=== PATIENT | male | born 1985 | race Caucasian/White ===

== ENCOUNTER 2017-10-22 04:44 | Emergency (ER) | payer OTHER, SELFPAY | END 2017-10-22 06:42 | disposition home or self-care (01) | LOC: ERS 04:44 | DX: L02.214 Cutaneous abscess of groin (principal); L03.314 Cellulitis of groin; E11.9 Type 2 diabetes mellitus without complications | CPT/HCPCS: 99283 ==

== ENCOUNTER 2017-10-22 19:14 | Emergency (ER) | payer SELFPAY ==
[2017-10-22] MEDS ORDERED: Lidocaine 1% w/Epinephrine 1:100K 20 ML VIAL ONE (19:31)
[2017-10-22] MEDS ORDERED: Adacel (T-DAP) 0.5 ML VIAL ONE (20:40)
== END 2017-10-22 21:00 | disposition home or self-care (01) ==
LOC: ERS 19:14
DX: L02.415 Cutaneous abscess of right lower limb (principal); E11.9 Type 2 diabetes mellitus without complications; Z79.899 Other long term (current) drug therapy
CPT/HCPCS: 10060; 87070; 87205; 90471; 90715; J2001

== ENCOUNTER 2023-04-22 07:55 | Emergency (ER) | payer SELFPAY ==
[2023-04-22] MEDS ORDERED: Ketorolac Tromethamine 30 MG/ML VIAL ONE (08:40)
== END 2023-04-22 09:22 | disposition home or self-care (01) ==
LOC: ERS 07:55
DX: M25.531 Pain in right wrist (principal); E11.9 Type 2 diabetes mellitus without complications
CPT/HCPCS: 96372; J1885

== ENCOUNTER 2024-09-18 05:07 | Emergency (ER) | payer SELFPAY ==
[2024-09-18] MEDS ORDERED: Fluorescein Opthalmic Strip ONE (05:30)
[2024-09-18] MEDS ORDERED: Proparacaine 0.5% Opth 15 ML BOT ONE (05:34)
[2024-09-18] MEDS ORDERED: Ibuprofen 200 MG TAB ONE (06:19)
[2024-09-18 06:33] LABS: #Basophils 0.05 10x3/uL (0.0-0.2); %Basophils 0.5 % (0.0-1.0); %Eosinophils 2.4 % (0.0-10.0); %Monocytes 6.4 % (0.0-10.0); %Neutrophils 71.3 % (42.0-75.0); Hematocrit 43.4 % (42.0-52.0); Hemoglobin 15.3 g/dL (14.0-18.0); Mean Corpuscular HGB CONC 35.3 g/dL (32.0-36.0); Mean Corpuscular Hemoglobin 28.4 pg (27.0-31.0); Mean Corpuscular Volume 80.7 fL (78.0-98.0); Mean Platelet Volume 9.9 fL (7.4-10.4); Platelet Count 269 10x3/uL (130-400); RBC Distribution Width 13.4 % (11.5-14.5); Red Blood Cell (RBC) Count 5.38 mill/uL (4.70-6.10)
[2024-09-18 06:53] LABS: ALT (SGPT) 50 U/L (Less than 45); Albumin 3.8 g/dL (3.1-4.5); Alkaline Phosphatase 105 U/L (40-110); Anion Gap 16 mmol/L (10-20); BUN (Urea Nitrogen) 20 mg/dL (8.9-20.6); Bilirubin, Total 0.3 mg/dL (0.3-1.2); Calc. Creatinine Clearance 0 mL/min (70-130); Calcium 9.5 mg/dL (7.8-10.44); Carbon Dioxide 21 mmol/L (22-29); Chloride 101 mmol/L (98-107); Estimated GFR 85; Globulin 5.2 g/dL (2.4-3.5); Glucose 335 mg/dL (70-105); Potassium 4.4 mmol/L (3.5-5.1); Sodium 134 mmol/L (136-145)
[2024-09-18 06:54] LABS: Acetaminophen 11 mcg/mL (Less than 10); Alcohol Less than 10.0 mg/dL (Less than 10)
[2024-09-18 07:37] LABS: AST (SGOT) 46 U/L (11-34); Salicylate Less than 8.0 mg/dL (Less than 8.0)
[2024-09-18 08:37] LABS: Acetaminophen Less than 10 mcg/mL (Less than 10)
[2024-09-18 12:35] LABS: PTT 37.6 sec (22.9-36.1)
[2024-09-18 13:19] LABS: ALT (SGPT) 50 U/L (Less than 45); AST (SGOT) 39 U/L (11-34); Acetaminophen Less than 10 mcg/mL (Less than 10); Albumin 3.7 g/dL (3.1-4.5); Alkaline Phosphatase 103 U/L (40-110); Anion Gap 13 mmol/L (10-20); BUN (Urea Nitrogen) 18 mg/dL (8.9-20.6); Bilirubin, Total 0.4 mg/dL (0.3-1.2); Calc. Creatinine Clearance 0 mL/min (70-130); Calcium 9.1 mg/dL (7.8-10.44); Carbon Dioxide 22 mmol/L (22-29); Chloride 104 mmol/L (98-107); Estimated GFR 98; Globulin 4.2 g/dL (2.4-3.5); Glucose 350 mg/dL (70-105); Potassium 4.1 mmol/L (3.5-5.1); Protein, Total 7.9 g/dL (6.0-8.3); Sodium 135 mmol/L (136-145)
== END 2024-09-18 14:28 | disposition home or self-care (01) ==
LOC: ERS 05:07
DX: T39.1X1A Poisoning by 4-Aminophenol derivatives, accidental (unintentional), initial encounter (principal); H53.452 Other localized visual field defect, left eye; H11.432 Conjunctival hyperemia, left eye; E11.9 Type 2 diabetes mellitus without complications; Z79.899 Other long term (current) drug therapy
CPT/HCPCS: 36415; 80053; 80143; 80307; 85025; 85610; 85730; 99284